=== PATIENT | female | born 1945 | race Caucasian/White ===

== ENCOUNTER 2022-05-18 15:14 | Inpatient (IN) ==
[2022-05-18 19:49] VITALS: BMI 16.6
[2022-05-18] MEDS ORDERED: MICRO K EXTEN CAP 10 MEQ PO PRN (20:37)
[2022-05-18] MEDS ORDERED: POTASSIUM CHLORIDE LIQ 20 MEQ UDC PO PRN (20:37)
[2022-05-18] MEDS ORDERED: POTASSIUM CHL 60 MEQ/NS 0.45% 500 ML IV PRN (20:37)
[2022-05-18] MEDS ORDERED: KLOR-CON PO PRN (20:37)
[2022-05-18] MEDS ORDERED: POTASSIUM CHL 40 MEQ/NS 0.45% 500 ML IV PRN (20:37)
[2022-05-18] MEDS ORDERED: K-RIDER 10 MEQ/NS 100 ML 10 MEQ/100 ML BAG IV PRN (20:37)
[2022-05-18 21:25] LABS: ALANINE AMINOTRANSFERASE 20 Units/L (12-78); ALBUMIN 3.7 g/dL (3.4-5.0); ALKALINE PHOSPHATASE 48 Units/L (46-116); ASPARTATE AMINO TRANSFERASE 16 Units/L (15-37); BLOOD UREA NITROGEN 16 mg/dL (7-18); CALCIUM 7.8 mg/dL (8.5-10.1); CARBON DIOXIDE 30.8 mmol/L (21-32); CHLORIDE 108 mmol/L (98-107); CREATININE 0.84 mg/dL (0.55-1.02); SODIUM 146 mmol/L (136-145); TOTAL PROTEIN 6.2 g/dL (6.4-8.2); eGFR NON BLACK RACES > 60 (>60)
[2022-05-18 21:31] LABS: HEMOGLOBIN 10.5 g/dL (12.0-16.0); WHITE BLOOD COUNT 4.5 X10^3/uL (3.6-10.0)
[2022-05-18 21:34] LABS: BASOPHILS % (AUTO) 0.9 % (0.2-1.0); EOSINOPHILS # (AUTO) 0.1 x10^3/uL (0.0-0.2); LYMPHOCYTES # (AUTO) 1.5 X10^3/uL (1.3-2.9); NEUTROPHILS # (AUTO) 2.4 x10^3/uL (2.2-4.8)
[2022-05-18 21:37] LABS: EOSINOPHILS % (AUTO) 1.5 % (0.9-2.9); HEMATOCRIT 29.6 % (36.0-47.0); LYMPHOCYTES % (AUTO) 34.2 % (21.0-51.0); MEAN CORPUSCULAR HEMOGLOBIN 33.3 pg (27.0-34.0); MEAN CORPUSCULAR HGB CONC 35.6 g/dL (33.0-35.0); MEAN CORPUSCULAR VOLUME 93.5 fL (80.0-100.0); MEAN PLATELET VOLUME 7.8 fL (7.4-11.0); MONOCYTES # (AUTO) 0.4 x10^3/uL (0.3-0.8); NEUTROPHILS % (AUTO) 53.4 % (42.0-75.0); RED BLOOD COUNT 3.16 X10^6/uL (3.5-5.4); RED CELL DISTRIBUTION WIDTH 13.5 % (11.6-16.5)
[2022-05-18] MEDS: NS 1,000 ML IV 1,000 ML IV SCH (21:38)
[2022-05-18] MEDS: MAGNESIUM SULFATE 1 GRAM/100 mL PREMIX 1 G/100 ML BAG IV PRN ×2 (21:39→22:39)
[2022-05-19] MEDS: MAGNESIUM SULFATE 1 GRAM/100 mL PREMIX 1 G/100 ML BAG IV PRN ×6 (00:47→06:00)
[2022-05-19] MEDS: VISTARIL PO PRN ×2 (01:01→20:40)
[2022-05-19] MEDS: NS 1,000 ML IV 1,000 ML IV SCH ×3 (05:14→20:42)
[2022-05-19] MEDS ORDERED: CATAPRES TAB 0.1 MG PO ONE (05:21)
--- NOTE | 2022-05-19 05:54 | EKG ---
Test Reason : hypertension Blood Pressure : */* mmHG Vent. Rate : 55 BPM Atrial Rate : 166 BPM P-R Int : 202 ms QRS Dur : 86 ms QT Int : 492 ms P-R-T Axes : 65 5 61 degrees QTc Int : 470 ms Sinus bradycardia Septal infarct , age undetermined Abnormal ECG No previous ECGs available Confirmed by Reji Morfin ([id number]) on 05/19/2022 7:30:05 PM Referred By: Confirmed By: Reji Morfin
[2022-05-19 07:08] LABS: BASOPHILS % (AUTO) 0.8 % (0.2-1.0); EOSINOPHILS # (AUTO) 0.1 x10^3/uL (0.0-0.2); EOSINOPHILS % (AUTO) 2.4 % (0.9-2.9); HEMATOCRIT 28.6 % (36.0-47.0); HEMOGLOBIN 10.2 g/dL (12.0-16.0); LYMPHOCYTES # (AUTO) 1.3 X10^3/uL (1.3-2.9); LYMPHOCYTES % (AUTO) 31.5 % (21.0-51.0); MEAN CORPUSCULAR HEMOGLOBIN 33.3 pg (27.0-34.0); MEAN CORPUSCULAR HGB CONC 35.6 g/dL (33.0-35.0); MEAN CORPUSCULAR VOLUME 93.6 fL (80.0-100.0); MEAN PLATELET VOLUME 7.8 fL (7.4-11.0); MONOCYTES # (AUTO) 0.5 x10^3/uL (0.3-0.8); MONOCYTES % (AUTO) 11.5 % (0.0-13.0); NEUTROPHILS # (AUTO) 2.2 x10^3/uL (2.2-4.8); NEUTROPHILS % (AUTO) 53.8 % (42.0-75.0); RED BLOOD COUNT 3.05 X10^6/uL (3.5-5.4); RED CELL DISTRIBUTION WIDTH 13.6 % (11.6-16.5); WHITE BLOOD COUNT 4.1 X10^3/uL (3.6-10.0)
[2022-05-19 07:14] LABS: ALANINE AMINOTRANSFERASE 17 Units/L (12-78); ALBUMIN 3.2 g/dL (3.4-5.0); ALKALINE PHOSPHATASE 44 Units/L (46-116); ASPARTATE AMINO TRANSFERASE 15 Units/L (15-37); BLOOD UREA NITROGEN 10 mg/dL (7-18); CALCIUM 7.7 mg/dL (8.5-10.1); CARBON DIOXIDE 29.3 mmol/L (21-32); CHLORIDE 108 mmol/L (98-107); COR CA(FOR HYPOALB) 8.3 mg/dL (8.5-10.1); CREATININE 0.69 mg/dL (0.55-1.02); MAGNESIUM 3.5 mg/dL (2.0-2.9); SODIUM 144 mmol/L (136-145); TOTAL PROTEIN 5.5 g/dL (6.4-8.2); eGFR NON BLACK RACES > 60 (>60)
[2022-05-19] MEDS: K-DUR TAB 20 MEQ PO PRN ×2 (08:31→14:20)
[2022-05-19] MEDS: LOVENOX INJ 40 MG SYR SC SCH (12:05)
--- NOTE | 2022-05-19 13:07 | DR.UPDATE ---
H&P Update Prescription drug monitoring program results: PDMP reviewed with concerns identified H&P Reviewed: Yes Any changes to H&P?: Yes Changes noted:: WAS SEEN IN THE OFFICE YESTERDAY FOR LAB RESULTS. LABS REVEALED A CRITICALLY LOW MAGNESIUM LEVEL OF 0.8. PATIENT COMPLAINED OF FATIGUE AND CHRONIC DIARRHEA. DECISION WAS MADE TO ADMIT PATIENT TO THE HOSPITAL FOR FURTHER EVALUATION AND TREATMENT. SHE HAS A PMH OF SUBARACHNOID HEMORRHAGE, HTN, COLON CANCER, ARTHRITIS, GOUT, ANEMIA, ADD, COLON RESECTION. ON ARRIVAL TO THE HOSPITAL, HER VITALS WERE 97.7-68-20-98%-158/70. LABS WERE OBTAINED. WBC 4.5, RBC 3.16, HGB 10.5, HCT 29.6, PLT COUNT 197, SODIUM 146, POTASSIUM 2.8, CHLORIDE 108, CARBON DIOXIDE 30.8, BUN 16, CREATININE 0.84, GLUCOSE 93, CALCIUM 7.8, AST 16, ALT 20, ALK PHOS 48, TOTAL PROTEIN 6.2, MAGNESIUM 0.7. WE STARTED PATIENT ON NORMAL SALINE AT 125ML/HR AND THE POTASSIUM AND MAGNESIUM PROTOCOLS. OTHERWISE, WE WILL FOLLOW-UP WITH AM LABS AND CONTINUE TO MONITOR. TIME SPENT ON CLINICAL ASSESSMENT, REVIWING LABS AND IMAGING, DECISION MAKING, AND DOCUMENTATION GREATER THAN 75 MINUTES. Patient was examined?: Yes
[2022-05-19] MEDS ORDERED: NORVASC TAB 5 MG PO ONE (16:37)
[2022-05-19] MEDS: ZESTRIL TAB 40 MG PO SCH (16:58)
[2022-05-19] MEDS ORDERED: TYLENOL #3 TAB (W/CODEINE) PO PRN (17:34)
[2022-05-19] MEDS ORDERED: XANAX PO PRN (17:41)
[2022-05-19] MEDS: CYMBALTA PO SCH (20:40)
[2022-05-19] MEDS: PLAQUENIL PO SCH (20:42)
[2022-05-19] MEDS: ZANAFLEX PO SCH (20:42)
[2022-05-20] MEDS: NS 1,000 ML IV 1,000 ML IV SCH ×3 (05:31→23:20)
[2022-05-20 06:14] LABS: BASOPHILS % (AUTO) 0.9 % (0.2-1.0); EOSINOPHILS # (AUTO) 0.1 x10^3/uL (0.0-0.2); EOSINOPHILS % (AUTO) 2.5 % (0.9-2.9); HEMATOCRIT 29.4 % (36.0-47.0); HEMOGLOBIN 10.5 g/dL (12.0-16.0); LYMPHOCYTES # (AUTO) 1.2 X10^3/uL (1.3-2.9); MEAN CORPUSCULAR HEMOGLOBIN 33.6 pg (27.0-34.0); MEAN CORPUSCULAR HGB CONC 35.7 g/dL (33.0-35.0); MEAN PLATELET VOLUME 7.9 fL (7.4-11.0); MONOCYTES # (AUTO) 0.4 x10^3/uL (0.3-0.8); MONOCYTES % (AUTO) 9.5 % (0.0-13.0); NEUTROPHILS # (AUTO) 2.9 x10^3/uL (2.2-4.8); NEUTROPHILS % (AUTO) 61.1 % (42.0-75.0); RED BLOOD COUNT 3.13 X10^6/uL (3.5-5.4); RED CELL DISTRIBUTION WIDTH 13.9 % (11.6-16.5); WHITE BLOOD COUNT 4.7 X10^3/uL (3.6-10.0)
[2022-05-20 06:29] LABS: ALANINE AMINOTRANSFERASE 19 Units/L (12-78); ALBUMIN 3.2 g/dL (3.4-5.0); ALKALINE PHOSPHATASE 46 Units/L (46-116); ASPARTATE AMINO TRANSFERASE 19 Units/L (15-37); BLOOD UREA NITROGEN 10 mg/dL (7-18); CALCIUM 7.7 mg/dL (8.5-10.1); CARBON DIOXIDE 27.1 mmol/L (21-32); CHLORIDE 110 mmol/L (98-107); COR CA(FOR HYPOALB) 8.3 mg/dL (8.5-10.1); CREATININE 0.68 mg/dL (0.55-1.02); MAGNESIUM 1.4 mg/dL (2.0-2.9); SODIUM 146 mmol/L (136-145); TOTAL PROTEIN 5.6 g/dL (6.4-8.2); eGFR NON BLACK RACES > 60 (>60)
[2022-05-20] MEDS: LOVENOX INJ 40 MG SYR SC SCH (08:52)
[2022-05-20] MEDS: PLAQUENIL PO SCH ×2 (08:53→20:50)
[2022-05-20] MEDS: MAGNESIUM SULFATE 1 GRAM/100 mL PREMIX 1 G/100 ML BAG IV PRN ×4 (08:53→16:44)
[2022-05-20] MEDS: ZESTRIL TAB 40 MG PO SCH (08:53)
[2022-05-20] MEDS: NORVASC TAB 10 MG PO SCH (08:53)
[2022-05-20] MEDS: CYMBALTA PO SCH ×2 (08:54→20:50)
[2022-05-20] MEDS: ZANAFLEX PO SCH ×2 (08:54→23:20)
[2022-05-20] MEDS: K-DUR TAB 20 MEQ PO PRN (08:54)
[2022-05-20] MEDS: MAG-OX TAB PO SCH ×2 (10:28→16:44)
[2022-05-20] MEDS: LOMOTIL PO PRN (14:23)
[2022-05-20] MEDS: VISTARIL PO PRN (22:40)
[2022-05-20 23:23] LABS: CRYPTOSPORIDIUM PARVUM ANTIGEN NEGATIVE (NEGATIVE); GIARDIA LAMBLIA ANTIGEN NEGATIVE (NEGATIVE)
[2022-05-21] MEDS: MAG-OX TAB PO SCH (06:15)
[2022-05-21] MEDS: NS 1,000 ML IV 1,000 ML IV SCH (06:40)
[2022-05-21 06:44] LABS: BASOPHILS % (AUTO) 0.6 % (0.2-1.0); EOSINOPHILS # (AUTO) 0.1 x10^3/uL (0.0-0.2); HEMATOCRIT 30.2 % (36.0-47.0); HEMOGLOBIN 10.8 g/dL (12.0-16.0); LYMPHOCYTES # (AUTO) 1.1 X10^3/uL (1.3-2.9); LYMPHOCYTES % (AUTO) 15.5 % (21.0-51.0); MEAN CORPUSCULAR HEMOGLOBIN 33.4 pg (27.0-34.0); MEAN CORPUSCULAR HGB CONC 35.6 g/dL (33.0-35.0); MEAN CORPUSCULAR VOLUME 93.7 fL (80.0-100.0); MONOCYTES # (AUTO) 0.6 x10^3/uL (0.3-0.8); MONOCYTES % (AUTO) 8.6 % (0.0-13.0); NEUTROPHILS # (AUTO) 5.2 x10^3/uL (2.2-4.8); NEUTROPHILS % (AUTO) 74.3 % (42.0-75.0); RED BLOOD COUNT 3.22 X10^6/uL (3.5-5.4); RED CELL DISTRIBUTION WIDTH 13.7 % (11.6-16.5); WHITE BLOOD COUNT 6.9 X10^3/uL (3.6-10.0)
[2022-05-21 07:01] LABS: ALANINE AMINOTRANSFERASE 22 Units/L (12-78); ALBUMIN 3.6 g/dL (3.4-5.0); ALKALINE PHOSPHATASE 49 Units/L (46-116); ASPARTATE AMINO TRANSFERASE 18 Units/L (15-37); BLOOD UREA NITROGEN 12 mg/dL (7-18); CALCIUM 8.5 mg/dL (8.5-10.1); CARBON DIOXIDE 28.9 mmol/L (21-32); CHLORIDE 106 mmol/L (98-107); CREATININE 0.72 mg/dL (0.55-1.02); SODIUM 143 mmol/L (136-145); TOTAL PROTEIN 6.1 g/dL (6.4-8.2); eGFR NON BLACK RACES > 60 (>60)
[2022-05-21] MEDS: PLAQUENIL PO SCH (08:46)
[2022-05-21] MEDS: ZESTRIL TAB 40 MG PO SCH (08:46)
[2022-05-21] MEDS: CYMBALTA PO SCH (08:46)
[2022-05-21] MEDS: NORVASC TAB 10 MG PO SCH (08:46)
[2022-05-21] MEDS: MAGNESIUM SULFATE 1 GRAM/100 mL PREMIX 1 G/100 ML BAG IV PRN ×2 (08:46→12:04)
[2022-05-21] MEDS: LOVENOX INJ 40 MG SYR SC SCH (08:47)
[2022-05-21] MEDS: LOMOTIL PO PRN (08:47)
[2022-05-21] MEDS: ZANAFLEX PO SCH (08:47)
[2022-05-21] MEDS: K-DUR TAB 20 MEQ PO PRN (12:04)
[2022-05-21 12:05] VITALS: BP 143/74
== END 2022-05-21 14:59 | disposition home or self-care (01) | DRG 641 ==
LOC: MED/SURG 18:08
PROVIDERS: ADMIT Internal Medicine; ATTEND Internal Medicine
DX: I10 Essential (primary) hypertension; R53.83 Other fatigue; Z85.038 Personal history of other malignant neoplasm of large intestine; M19.90 Unspecified osteoarthritis, unspecified site; R19.7 Diarrhea, unspecified; E83.42 Hypomagnesemia